=== PATIENT | female | born 1985 | race Two or more races ===

== ENCOUNTER 2017-11-02 02:34 | Emergency (ER) | payer MEDICAID ==
[~2017-11-02] VITALS: Ht 154.9 cm; Wt 80.3 kg
[2017-11-02 04:05] VITALS: BP 130/77
[2017-11-02] MEDS ORDERED: LIDOCAINE VISCOUS 2% 15ML UD PO ONE (04:30)
[2017-11-02] MEDS ORDERED: ALUM & MAG HYDROX-SIMETH LIQ(MAALOX) 30 ML PO ONE (04:30)
[2017-11-02] MEDS ORDERED: TRIAMCINOLONE 40MG/ML 1ML VIAL IM ONE (05:30)
== END 2017-11-02 05:29 | disposition home or self-care (01) ==
LOC: ER 02:34
DX: K21.9 Gastro-esophageal reflux disease without esophagitis (principal)
CPT/HCPCS: 70360; 81025; 96372; 99285; J3301